=== PATIENT | male | born 1950 | race Caucasian/White ===

== ENCOUNTER 2018-03-18 15:13 | Inpatient (IN) | payer MEDICARE ==
[~2018-03-18] VITALS: Ht 177.8 cm; Wt 124.9 kg
[~2018-03-18 15:13] MED LIST: ATEN50TA41 PO; DOXA1TAB2 PO; GLIP5TAB10 PO; LISI-167 PO; MECL-76 PO; METF10002 PO; METO25TA35 PO; NIAC500C3 PO; OXYC5CAP2 PO; POTA10TA17 PO; SIMV40TA3 PO; SITA1TAB5 PO; TAMS0.4C2 PO
[2018-03-18 15:33] LABS: BASOPHILS # (AUTO) 0.03 x10^3/uL (0-0.1); BASOPHILS % (AUTO) 0 % (0-1); EOSINOPHILS # (AUTO) 0.14 x10^3/uL (0-0.4); EOSINOPHILS % (AUTO) 2 % (1-7); LYMPHOCYTES # (AUTO) 1.14 x10^3/uL (1-3.4); LYMPHOCYTES % (AUTO) 14 % (22-44); MD NO; MEAN CORPUSCULAR HEMOGLOBIN 30.4 pg (27.5-34.5); MEAN CORPUSCULAR HGB CONC 33.5 g/dL (33.2-36.2); MEAN CORPUSCULAR VOLUME 90.6 fL (81-97); MEAN PLATELET VOLUME 9.5 fL (7.4-10.4); MONOCYTES # (AUTO) 0.99 x10^3/uL (0.2-0.8); MONOCYTES % (AUTO) 12 % (2-9); NEUTROPHILS # (AUTO) 6.01 x10^3/uL (1.8-6.8); NEUTROPHILS % (AUTO) 72 % (42-75); PLATELET COUNT 130 x10^3/uL (130-400); RED BLOOD COUNT 4.83 x10^6/uL (4.38-5.82); RED CELL DISTRIBUTION WIDTH 13.7 % (9.4-14.8)
[2018-03-18 15:45] LABS: ALBUMIN 3.6 g/dL (3.4-5.0); ANION GAP 8 mmol/L (5-15); CALCIUM 8.9 mg/dL (8.5-10.1); CHLORIDE 110 mmol/L (98-107); CREATININE 1.47 mg/dL (0.7-1.3)
--- NOTE | 2018-03-18 16:37 | NUR ---
LUNCH RN: PT ARRIVES TO ED WITH C/O OF LEFT FLANK PAIN X 2 DAYS. PT REPORTS PAIN STARTED LAST NIGHT. PT REPORTS RELIEF WITH WALKING. PT REPORTS HE HAS HAD KIDNEY STONES BEFORE AND THIS FEELS LIKE THIS BEFORE. PT PLACED IN GOWN AND PT UA SENT TO LAB. AWAITING FURTHER ORDERS.
--- NOTE | 2018-03-18 16:37 | NUR ---
Pt amb to rm 14 from [facility]
[2018-03-18 16:52] LABS: MICROSCOPIC NOT IND
[2018-03-18 16:56] LABS: CULTURE INDICATED? NO
--- NOTE | 2018-03-18 17:44 | NUR ---
PT IN BED. AWAITING FURTHER TEST RESULTS AND ORDERS.
--- NOTE | 2018-03-18 17:59 | NUR ---
ECHO IN ROOM
[2018-03-18] MEDS ORDERED: FENTANYL PF 100 MCG/2ML ONE ×2 (18:30→20:40)
[2018-03-18] MEDS ORDERED: morphine SULFATE 10 MG/ML, 1ML IVPush PRN (19:00)
[2018-03-18] MEDS ORDERED: ONDANSETRON ODT 4 MG PO PRN (19:00)
[2018-03-18] MEDS ORDERED: ONDANSETRON 2MG/ML, 2ML IVPush PRN (19:00)
[2018-03-18] MEDS ORDERED: ACETAMINOPHEN 325 MG TABLET PO PRN ×2 (19:00→21:30)
[2018-03-18] MEDS ORDERED: DOCUSATE 100 MG CAPSULE PO PRN (19:00)
[2018-03-18] MEDS ORDERED: BISACODYL 10 MG SUPP PR PRN (19:00)
[2018-03-18] MEDS ORDERED: SUCCINYLCHOLINE 20 MG/ML, 10ML ONE (19:15)
[2018-03-18] MEDS ORDERED: ROCURONIUM 10 MG/ML,10ML ONE (19:15)
[2018-03-18] MEDS ORDERED: CIPROFLOXACIN 400MG/200ML PMX ONE (19:15)
[2018-03-18] MEDS ORDERED: PHENYLEPHRINE 10 MG/ML ONE (19:15)
[2018-03-18] MEDS ORDERED: ONDANSETRON 2MG/ML, 2ML ONE (19:15)
[2018-03-18] MEDS ORDERED: DEXAMETHASONE 4 MG/ML, 1ML ONE (19:15)
[2018-03-18] MEDS ORDERED: PROPOFOL 10 MG/ML, 20ML ONE (19:15)
[2018-03-18] MEDS ORDERED: EPHEDRINE 50 MG/ML, 1ML ONE (19:15)
[2018-03-18 19:22] LABS: FREE T4 (FREE THYROXINE) 1.11 ng/dL (0.76-1.46); THYROID STIMULATING HORMONE 2.34 mIU/L (0.358-3.740)
[2018-03-18] MEDS ORDERED: DIAZEPAM 5 MG/ML, 2ML IVPush PRN (21:30)
[2018-03-18] MEDS ORDERED: LABETALOL 5MG/ML, 20ML IV PRN (21:30)
[2018-03-18] MEDS ORDERED: hydrALAzine 20 MG/ML, 1ML IV PRN (21:30)
[2018-03-18] MEDS ORDERED: OXYcodone 5 MG/5 ML ORAL.SOL UDC PO PRN (21:30)
[2018-03-18] MEDS ORDERED: KETOROLAC 30 MG/1 ML IV PRN (21:30)
[2018-03-18] MEDS ORDERED: FENTANYL PF 100 MCG/2ML IV PRN (21:30)
[2018-03-18] MEDS ORDERED: HYDROmorphone 2 MG/ML, 1ML IVPush PRN (21:30)
[2018-03-18] MEDS ORDERED: MECLIZINE CHEWABLE 25 MG TAB PO PRN (21:30)
[2018-03-18] MEDS ORDERED: MEPERIDINE/PF 25MG/0.5ML IVPush PRN (21:30)
[2018-03-18] MEDS ORDERED: PROMETHAZINE 25 MG/ML, 1ML IV PRN (21:30)
[2018-03-18] MEDS ORDERED: ALBUTEROL SULFATE 2.5 MG/3 ML NPPB PRN (21:30)
[2018-03-18] MEDS: HEPARIN 5,000 UNITS/ML, 1ML SQ SCH (22:42)
[2018-03-18] MEDS: LACTATED RINGERS 1,000 ML IV SCH (22:43)
[2018-03-18 22:47] VITALS: BP 107/62
[2018-03-19 02:59] VITALS: BP 144/84
[2018-03-19 06:00] LABS: BASOPHILS # (AUTO) 0.04 x10^3/uL (0-0.1); BASOPHILS % (AUTO) 1 % (0-1); EOSINOPHILS # (AUTO) 0.01 x10^3/uL (0-0.4); EOSINOPHILS % (AUTO) 0 % (1-7); LYMPHOCYTES % (AUTO) 7 % (22-44); MD NO; MEAN CORPUSCULAR HEMOGLOBIN 30.3 pg (27.5-34.5); MEAN CORPUSCULAR HGB CONC 33.8 g/dL (33.2-36.2); MEAN CORPUSCULAR VOLUME 89.8 fL (81-97); MEAN PLATELET VOLUME 9.8 fL (7.4-10.4); MONOCYTES # (AUTO) 0.39 x10^3/uL (0.2-0.8); MONOCYTES % (AUTO) 6 % (2-9); NEUTROPHILS # (AUTO) 6.05 x10^3/uL (1.8-6.8); NEUTROPHILS % (AUTO) 87 % (42-75); PLATELET COUNT 115 x10^3/uL (130-400); RED BLOOD COUNT 4.57 x10^6/uL (4.38-5.82); RED CELL DISTRIBUTION WIDTH 14.1 % (9.4-14.8)
[2018-03-19 06:15] LABS: ANION GAP 7 mmol/L (5-15); CALCIUM 8.2 mg/dL (8.5-10.1); CHLORIDE 111 mmol/L (98-107); CREATININE 1.29 mg/dL (0.7-1.3)
[2018-03-19] MEDS: HEPARIN 5,000 UNITS/ML, 1ML SQ SCH ×3 (06:36→22:13)
[2018-03-19 07:50] VITALS: BP 136/77
[2018-03-19] MEDS ORDERED: LISINOPRIL 10 MG TABLET PO SCH (09:00)
[2018-03-19] MEDS ORDERED: TAMSULOSIN 0.4 MG CAP.ER.24H PO SCH (09:00)
[2018-03-19] MEDS: SENNA/DOCUSATE TABLET PO SCH (09:55)
[2018-03-19] MEDS: LACTATED RINGERS 1,000 ML IV SCH ×2 (12:22→20:20)
[2018-03-19 12:36] VITALS: BP 126/71
[2018-03-19] MEDS ORDERED: LISINOPRIL 20 MG TABLET HOMEMEDPO SCH (15:22)
[2018-03-19] MEDS ORDERED: LISINOPRIL 10 MG TABLET HOMEMEDPO SCH (15:22)
[2018-03-19] MEDS ORDERED: GLIPizide ER 5 MG TABLET HOMEMEDPO SCH (15:24)
[2018-03-19] MEDS: OXYcodone/APAP 5/325MG TABLET PO PRN ×3 (16:07→22:17)
[2018-03-19] MEDS ORDERED: OMNIPAQUE 350 MG/ML, 100ML BOTTLE ONE (16:14)
[2018-03-19] MEDS ORDERED: ATOR20TA37 PO (17:34)
[2018-03-19 20:01] VITALS: BP_SYST 106; BP_SYST 112; BP_DIAS 58; BP_DIAS 73
[2018-03-19] MEDS: DOXAZOSIN 2MG TABLET PO SCH (20:10)
[2018-03-19] MEDS ORDERED: SIMVASTATIN 40 MG TABLET PO SCH (21:00)
[2018-03-19] MEDS ORDERED: ATORVASTATIN 40 MG TABLET PO SCH (21:00)
[2018-03-20 01:45] VITALS: BP 118/68
[2018-03-20] MEDS: OXYcodone/APAP 5/325MG TABLET PO PRN ×4 (03:59→19:44)
[2018-03-20 05:08] LABS: HCT (SEDRATE) 42.4 % (39.2-51.8)
[2018-03-20 05:28] LABS: ANION GAP 5 mmol/L (5-15); CALCIUM 8.7 mg/dL (8.5-10.1); CHLORIDE 109 mmol/L (98-107); CREATININE 1.38 mg/dL (0.7-1.3)
[2018-03-20] MEDS: HEPARIN 5,000 UNITS/ML, 1ML SQ SCH ×2 (06:42→14:51)
[2018-03-20 06:46] VITALS: BP 117/67
[2018-03-20] MEDS ORDERED: LISINOPRIL 20 MG TABLET HOMEMEDPO SCH ×3 (09:00→21:00)
[2018-03-20] MEDS ORDERED: DOXAZOSIN 2MG TABLET PO SCH (09:00)
[2018-03-20] MEDS ORDERED: GLIPizide ER 5 MG TABLET HOMEMEDPO SCH ×3 (09:00→21:00)
[2018-03-20] MEDS: LACTATED RINGERS 1,000 ML IV SCH ×3 (09:11→23:14)
[2018-03-20] MEDS: SENNA/DOCUSATE TABLET PO SCH (09:11)
[2018-03-20 12:41] VITALS: BP 143/80
[2018-03-20] MEDS ORDERED: MIDAZOLAM 1 MG/ML, 5ML ONE (16:14)
[2018-03-20] MEDS ORDERED: FENTANYL PF 100 MCG/2ML ONE (16:14)
[2018-03-20] MEDS ORDERED: LIDOCAINE 1%, 20ML ONE (16:27)
[2018-03-20 17:27] VITALS: BP 119/72
[2018-03-20 19:09] VITALS: BP 143/83
[2018-03-20] MEDS: DOXAZOSIN 2MG TABLET PO SCH (19:46)
[2018-03-20] MEDS ORDERED: ATORVASTATIN 40 MG TABLET HOMEMEDPO SCH (21:00)
[2018-03-21] MEDS: OXYcodone/APAP 5/325MG TABLET PO PRN ×4 (00:22→11:19)
[2018-03-21] MEDS: HEPARIN 5,000 UNITS/ML, 1ML SQ SCH ×2 (00:22→08:30)
[2018-03-21 02:07] VITALS: BP 111/69
[2018-03-21 05:30] LABS: BASOPHILS # (AUTO) 0.07 x10^3/uL (0-0.1); BASOPHILS % (AUTO) 1 % (0-1); EOSINOPHILS # (AUTO) 0.19 x10^3/uL (0-0.4); EOSINOPHILS % (AUTO) 3 % (1-7); LYMPHOCYTES # (AUTO) 1.13 x10^3/uL (1-3.4); LYMPHOCYTES % (AUTO) 19 % (22-44); MD NO; MEAN CORPUSCULAR HEMOGLOBIN 30.3 pg (27.5-34.5); MEAN CORPUSCULAR HGB CONC 33.4 g/dL (33.2-36.2); MEAN CORPUSCULAR VOLUME 90.6 fL (81-97); MONOCYTES # (AUTO) 0.56 x10^3/uL (0.2-0.8); MONOCYTES % (AUTO) 9 % (2-9); NEUTROPHILS # (AUTO) 4.08 x10^3/uL (1.8-6.8); NEUTROPHILS % (AUTO) 68 % (42-75); PLATELET COUNT 122 x10^3/uL (130-400); RED BLOOD COUNT 4.41 x10^6/uL (4.38-5.82); RED CELL DISTRIBUTION WIDTH 13.9 % (9.4-14.8)
[2018-03-21 05:38] LABS: ANION GAP 7 mmol/L (5-15); CALCIUM 8.1 mg/dL (8.5-10.1); CHLORIDE 110 mmol/L (98-107)
[2018-03-21 05:47] LABS: CREATININE 1.12 mg/dL (0.7-1.3)
[2018-03-21 07:52] VITALS: BP 134/79
[2018-03-21] MEDS: SENNA/DOCUSATE TABLET PO SCH (08:39)
[2018-03-21] MEDS ORDERED: OXYC1TAB7 PO (11:52)
[2018-03-21 16:51] LABS: ANA SCREEN NEGATIVE (Negative)
== END 2018-03-21 13:12 | disposition home or self-care (01) | DRG 987 ==
LOC: OR 18:39 → EDIP 18:40 → 5SO 22:08 → DCLOUNGE 03-21 13:12
PROVIDERS: ADMIT Family Medicine; ATTEND Family Medicine
PROC: 0TC78ZZ Extirpation of Matter from Left Ureter, Via Natural or Artificial Opening Endoscopic (ICD-10-PCS; 2018-03-18)
PROC: 0T778DZ Dilation of Left Ureter with Intraluminal Device, Via Natural or Artificial Opening Endoscopic (ICD-10-PCS; principal; 2018-03-18 19:15)
PROC: 0W9D30Z Drainage of Pericardial Cavity with Drainage Device, Percutaneous Approach (ICD-10-PCS; 2018-03-20)
DX: I31.3 Pericardial effusion (noninflammatory) (principal); N17.0 Acute kidney failure with tubular necrosis; N13.2 Hydronephrosis with renal and ureteral calculous obstruction; Z83.3 Family history of diabetes mellitus; Z82.49 Family history of ischemic heart disease and other diseases of the circulatory system; N40.0 Benign prostatic hyperplasia without lower urinary tract symptoms; Z88.0 Allergy status to penicillin; Z91.048 Other nonmedicinal substance allergy status; D69.6 Thrombocytopenia, unspecified
CPT/HCPCS: 33010; 36415; 71260; 74018; 74176; 76001; 76930; 80048; 81003; 82040; 82360; 82945; 83615; 83735; 83880; 84439; 84443; 85025; 85651; 86038; 86140; 86430; 87070; 87102; 87205; 88112; 88300; 88305; 89051; 93005; 93306; 93308; 93321; 93325; 99156; 99157; 99285; C1729; G0378; J0744; J1100; J1644; J2250; J2405; J2704; J3010; J3490; Q9967; C1769; C2617; J0330; J2370; J7120

== ENCOUNTER → 2018-06-17 | Outpatient (CLI) | payer MEDICARE ==
[~2018-06-17] MED LIST changes: +ATOR20TA37 PO; +OXYC1TAB7 PO
== END | disposition home or self-care (01) ==
LOC: CVU 12:02
PROVIDERS: ATTEND Internal Medicine Cardiovascular Disease
DX: I10 Essential (primary) hypertension (principal); I47.1 Supraventricular tachycardia; I31.3 Pericardial effusion (noninflammatory)
CPT/HCPCS: 93306

== ENCOUNTER 2018-07-04 10:33 | Outpatient (CLI) | payer MEDICARE ==
[2018-07-04] MEDS ORDERED: TAMS-11 PO (11:06)
[2018-07-04] MEDS ORDERED: GLIP5TAB10 PO (11:06)
[2018-07-04 11:44] LABS: BASOPHILS # (AUTO) 0.03 x10^3/uL (0-0.1); BASOPHILS % (AUTO) 0 % (0-1); EOSINOPHILS # (AUTO) 0.07 x10^3/uL (0-0.4); EOSINOPHILS % (AUTO) 1 % (1-7); LYMPHOCYTES # (AUTO) 1.16 x10^3/uL (1-3.4); LYMPHOCYTES % (AUTO) 17 % (22-44); MD NO; MEAN CORPUSCULAR HEMOGLOBIN 30.3 pg (27.5-34.5); MEAN CORPUSCULAR HGB CONC 33.8 g/dL (33.2-36.2); MEAN CORPUSCULAR VOLUME 89.7 fL (81-97); MEAN PLATELET VOLUME 9.3 fL (7.4-10.4); MONOCYTES # (AUTO) 0.82 x10^3/uL (0.2-0.8); MONOCYTES % (AUTO) 12 % (2-9); NEUTROPHILS # (AUTO) 4.83 x10^3/uL (1.8-6.8); NEUTROPHILS % (AUTO) 70 % (42-75); PLATELET COUNT 130 x10^3/uL (130-400); RED BLOOD COUNT 4.71 x10^6/uL (4.38-5.82); RED CELL DISTRIBUTION WIDTH 14.4 % (9.4-14.8)
[2018-07-04 11:58] LABS: ALBUMIN 3.7 g/dL (3.4-5.0); ANION GAP 7 mmol/L (5-15); CALCIUM 8.6 mg/dL (8.5-10.1); CHLORIDE 111 mmol/L (98-107)
[2018-07-04 12:02] LABS: ALANINE AMINOTRANSFERASE 27 U/L (12-78); ALKALINE PHOSPHATASE 69 U/L (45-117); BILIRUBIN,TOTAL 1.1 mg/dL (0.2-1.0); CREATININE 0.96 mg/dL (0.7-1.3); TOTAL PROTEIN 7.2 g/dL (6.4-8.2)
[2018-07-12] MEDS ORDERED: ACET-1600 PO (09:04)
[2018-07-12] MEDS ORDERED: IBUP-1222 PO (09:05)
[2018-07-12] MEDS ORDERED: OXYC5TAB3 PO (09:06)
== END 2018-07-04 23:59 | disposition home or self-care (01) ==
LOC: STAR 10:33
PROVIDERS: ATTEND Surgery
DX: Z01.818 Encounter for other preprocedural examination (principal); I31.3 Pericardial effusion (noninflammatory)
CPT/HCPCS: 36415; 80053; 85025; 93005

== ENCOUNTER 2019-03-26 09:24 | Emergency (ER) | payer MEDICARE ==
[~2019-03-26] VITALS: Ht 177.8 cm; Wt 126.9 kg
[~2019-03-26 09:24] MED LIST changes: +ACET-1600 PO; +IBUP-1222 PO; +OXYC5TAB3 PO; +SIMV40TA20 PO; -SIMV40TA3 PO; +TAMS-11 PO
--- NOTE | 2019-03-26 10:30 | NUR ---
PT HAS A COUGH FOR 3 WEEKS WORSENING OVER TIME AND ESPECIALLY AT NIGHT CAUSING DIFFICULTY BREATHING. IV ESTABLISHED WITH BLOOD DRAW AND PT MADE AWARE OF ORDER FOR CTA. PT AMBULATED TO BATHROOM STEADY GAIT AND THEN PLACED ON MONITOR
[2019-03-26 11:01] LABS: BASOPHILS # (AUTO) 0.04 x10^3/uL (0-0.1); BASOPHILS % (AUTO) 1 % (0-1); EOSINOPHILS # (AUTO) 0.07 x10^3/uL (0-0.4); EOSINOPHILS % (AUTO) 1 % (1-7); LYMPHOCYTES % (AUTO) 14 % (22-44); MD NO; MEAN CORPUSCULAR HGB CONC 33.4 g/dL (33.2-36.2); MEAN CORPUSCULAR VOLUME 89.8 fL (81-97); MEAN PLATELET VOLUME 9.3 fL (7.4-10.4); MONOCYTES # (AUTO) 0.58 x10^3/uL (0.2-0.8); MONOCYTES % (AUTO) 10 % (2-9); NEUTROPHILS # (AUTO) 4.47 x10^3/uL (1.8-6.8); NEUTROPHILS % (AUTO) 75 % (42-75); PLATELET COUNT 171 x10^3/uL (130-400); RED BLOOD COUNT 5.02 x10^6/uL (4.38-5.82); RED CELL DISTRIBUTION WIDTH 13.9 % (9.4-14.8)
[2019-03-26 11:13] LABS: ALBUMIN 3.5 g/dL (3.4-5.0); ANION GAP 8 mmol/L (5-15); CALCIUM 8.6 mg/dL (8.5-10.1); CHLORIDE 107 mmol/L (98-107)
[2019-03-26 11:18] LABS: ALANINE AMINOTRANSFERASE 29 U/L (12-78); ALKALINE PHOSPHATASE 92 U/L (45-117); BILIRUBIN,TOTAL 0.7 mg/dL (0.2-1.0); CREATININE 1.03 mg/dL (0.7-1.3); TOTAL PROTEIN 7.5 g/dL (6.4-8.2); TROPONIN I < 0.015 ng/mL (0.000-0.045)
--- NOTE | 2019-03-26 11:27 | NUR ---
TO CT VIA [facility]
[2019-03-26] MEDS ORDERED: OMNIPAQUE 350 MG/ML, 100ML BOTTLE ONE (11:49)
--- NOTE | 2019-03-26 11:54 | NUR ---
RETURNED FROM XRAY AND AGAIN AMBULATED TO BATHROOM WITHOUT ASSISTANCE. PT SITTING ON EDGE OF GURNEY BECAUSE IT HELPS PREVENT COUGH. PT HAS REGULAR, DRY COUGH.
[2019-03-26 11:55] VITALS: BP 169/90
--- NOTE | 2019-03-26 12:52 | NUR ---
AWAITING RE-EVAL. REMAINS SITTING IN POSITION OF COMFORT ON EDGE OF BED
== END 2019-03-26 13:38 | disposition home or self-care (01) ==
LOC: ED 11:26
DX: J98.01 Acute bronchospasm (principal); I49.3 Ventricular premature depolarization; R00.8 Other abnormalities of heart beat
CPT/HCPCS: 36415; 71045; 71275; 80053; 83880; 84484; 85025; 93005; 99284; Q9967

== ENCOUNTER 2020-01-08 06:42 | Day surgery (SDC) | payer MEDICARE ==
[~2020-01-08] VITALS: Ht 177.8 cm; Wt 118.2 kg
[2020-01-08 07:22] VITALS: BP 128/72
[2020-01-08] MEDS ORDERED: SODIUM CHLORIDE 0.9% 1,000 ML IV SCH ×2 (07:30→09:30)
[2020-01-08 07:53] LABS: BASOPHILS % (AUTO) 1 % (0-1); EOSINOPHILS % (AUTO) 2 % (1-7); LYMPHOCYTES % (AUTO) 21 % (22-44); MEAN CORPUSCULAR HEMOGLOBIN 29.9 pg (27.5-34.5); MONOCYTES % (AUTO) 14 % (2-9); NEUTROPHILS % (AUTO) 62 % (42-75); PLATELET COUNT 131 x10^3/uL (130-400); RED BLOOD COUNT 4.77 x10^6/uL (4.38-5.82); RED CELL DISTRIBUTION WIDTH 15.5 % (9.4-14.8)
[2020-01-08 08:09] LABS: ANION GAP 6 mmol/L (5-15); CALCIUM 8.7 mg/dL (8.5-10.1); CHLORIDE 110 mmol/L (98-107); CREATININE 1.08 mg/dL (0.7-1.3)
[2020-01-08 08:20] LABS: MD SCAN
[2020-01-08] MEDS ORDERED: BIVALIRUDIN 250 MG ONE (08:32)
[2020-01-08] MEDS ORDERED: TICAGRELOR 90 MG TABLET ONE (08:32)
[2020-01-08] MEDS ORDERED: FENTANYL PF 100 MCG/2ML ONE (08:32)
[2020-01-08] MEDS ORDERED: HEPARIN 1,000 UNITS/ML, 10ML ONE (08:32)
[2020-01-08] MEDS ORDERED: LIDOCAINE-MPF 1%, 5ML ONE (08:32)
[2020-01-08] MEDS ORDERED: VERAPAMIL 2.5 MG/ML, 2ML ONE (08:32)
[2020-01-08] MEDS ORDERED: MIDAZOLAM 1 MG/ML, 5ML ONE (08:32)
== END 2020-01-08 11:02 | disposition home or self-care (01) ==
LOC: CACL 06:42
PROVIDERS: ATTEND Internal Medicine Cardiovascular Disease
DX: I47.1 Supraventricular tachycardia (principal); I25.10 Atherosclerotic heart disease of native coronary artery without angina pectoris; I25.83 Coronary atherosclerosis due to lipid rich plaque; I10 Essential (primary) hypertension; I31.3 Pericardial effusion (noninflammatory); E11.9 Type 2 diabetes mellitus without complications; E78.49 Other hyperlipidemia; Z88.0 Allergy status to penicillin; Z91.013 Allergy to seafood; Z86.19 Personal history of other infectious and parasitic diseases
CPT/HCPCS: 36415; 80048; 85025; 93458; 99156; C1769; C1894; J1644; J2250; J3010; Q9967; J0583